=== PATIENT | female | born 1950 | race African-American/Black ===

== ENCOUNTER → 2018-10-16 | Day surgery (SDC) | payer BC ==
[~2018-10-16] MED LIST: LIDOCAINE HCL 1% 20ML VIAL (Pyxis) INJ ONE; SODIUM BICARBONATE 4% (2.4MEQ) 5ML VIAL IV ONE; UNK HTN
== END | disposition home or self-care (01) ==
LOC: RAD 09:38
PROVIDERS: ATTEND Internal Medicine Endocrinology, Diabetes & Metabolism
DX: E04.2 Nontoxic multinodular goiter (principal); Z88.0 Allergy status to penicillin
CPT/HCPCS: 10005; 10006; 88172; 88173; J3490